=== PATIENT | male | born 1960 | race Caucasian/White ===

== ENCOUNTER 2021-12-12 09:41 | Outpatient (CLI) | payer BC, MEDICARE | END 2021-12-12 09:42 | disposition home or self-care (01) | LOC: SCSMRI 09:41 | PROVIDERS: ATTEND Anesthesiology Pain Medicine | DX: M51.16 Intervertebral disc disorders with radiculopathy, lumbar region (principal); M48.061 Spinal stenosis, lumbar region without neurogenic claudication; M47.26 Other spondylosis with radiculopathy, lumbar region | CPT/HCPCS: 72158; 74018; 82565 ==

== ENCOUNTER 2022-12-24 10:11 | Outpatient (CLI) | payer BC, MEDICARE | END 2022-12-24 10:12 | disposition home or self-care (01) | LOC: MRI 10:11 | PROVIDERS: ATTEND Anesthesiology Pain Medicine | DX: M47.26 Other spondylosis with radiculopathy, lumbar region (principal); M47.815 Spondylosis without myelopathy or radiculopathy, thoracolumbar region; M47.816 Spondylosis without myelopathy or radiculopathy, lumbar region; M47.817 Spondylosis without myelopathy or radiculopathy, lumbosacral region; M51.16 Intervertebral disc disorders with radiculopathy, lumbar region; M48.061 Spinal stenosis, lumbar region without neurogenic claudication; K60.2 Anal fissure, unspecified; M51.27 Other intervertebral disc displacement, lumbosacral region; M48.07 Spinal stenosis, lumbosacral region; Z98.890 Other specified postprocedural states | CPT/HCPCS: 72148 ==

== ENCOUNTER 2025-05-14 14:38 | Outpatient (CLI) | payer BC, MEDICARE | END 2025-05-14 14:39 | disposition home or self-care (01) | LOC: CT 14:38 | PROVIDERS: ATTEND Orthopaedic Surgery | DX: M47.26 Other spondylosis with radiculopathy, lumbar region (principal); M54.50 Low back pain, unspecified; M48.061 Spinal stenosis, lumbar region without neurogenic claudication; M48.07 Spinal stenosis, lumbosacral region | CPT/HCPCS: 72131 ==